=== PATIENT | female | born 1955 | race Caucasian/White ===

== ENCOUNTER 2021-09-30 13:52 | Outpatient (CLI) | payer OTHER, SELFPAY ==
--- NOTE | 2021-09-30 13:59 | MM_ITS ---
WS: [email or web address] BILATERAL SCREENING DIGITAL MAMMOGRAM WITH CAD HISTORY: SCREENING COMPARISON: 09/12/2018 and 08/05/2015 Bilateral CC and MLO views submitted. Computer aided detection analyzed. Breast composition: The breasts are heterogeneously dense, which may obscure small masses. No suspici ous masses, microcalcifications or architectural distortion. Benign scattered calcifications in each breast. MM/[place] [id number] IMPRESSION: BI-RADS: 2-Benign FOLLOW UP: 1 Year Follow-up
== END 2021-09-30 13:53 | disposition home or self-care (01) ==
LOC: RADSHAW 13:58
PROVIDERS: PCP Family Medicine; Visit Provider Family Medicine
DX: Z12.31 Encounter for screening mammogram for malignant neoplasm of breast (principal)
CPT/HCPCS: 77067

== ENCOUNTER 2022-10-03 12:23 | Outpatient (CLI) | payer MEDICARE, OTHER, SELFPAY ==
--- NOTE | 2022-10-03 12:24 | XR_ITS ---
WS: [email or web address] SCREENING DEXA SCAN [facility] CLINICAL INFORMATION: BONE DENSITY COMPARISON: None. FINDINGS: The L1-L4 bone mineral density measures 0.912 g/cm2. This corresponds to a T score score of -2.2 and Z score of -1.6. Left femoral neck bone mineral density measures 1.003 g/cm2. This corresponds to a T score of 0.0 and Z score of 0.5. Right femoral neck bone mineral density measures 0.989 g/cm2. This corresponds to a T score -0.1of an d Z score of 0.4. Mean femoral neck bone mineral density measures 0.996 g/cm2. This corresponds to a T score of -0.1 an d Z score of 0.4. XR/XR DEXA axial skeleton* [id number] IMPRESSION: Osteopenia lumbar spine. Normal bone mineralization femoral necks. Patient's FRAX calculated 10 year probability for major osteoporotic fracture i s 8.0 % and osteoporotic hip fracture is 0.8%.
--- NOTE | 2022-10-03 12:24 | MM_ITS ---
WS: [email or web address] VIEWS: MLO and CC views both breasts. 3D digital tomosynthesis is also included in this exam. Comparison made with prior exam of 04/09/2008, 06/05/2009, 10/25/2010, 08/05/2015, 09/12/2018, 09/30/2021.. Findings: There was no sign of mass, architectural distortion or suspicious calcification in either breast. He terogeneously dense MM/[place] [id number] Impression: BI-RADS: 2-Benign FOLLOW-UP: 1 Year Follow-up This mammogram was also analyzed by the Computer Aided Detection System R2 Imag e [employer].
== END 2022-10-03 12:24 | disposition home or self-care (01) ==
LOC: RAD 12:24
PROVIDERS: PCP Family Medicine; Visit Provider Family Medicine
DX: Z78.0 Asymptomatic menopausal state (principal); Z12.31 Encounter for screening mammogram for malignant neoplasm of breast; M85.88 Other specified disorders of bone density and structure, other site
CPT/HCPCS: 77063; 77067; 77080

== ENCOUNTER 2023-06-02 12:10 | Outpatient (CLI) | payer MEDICARE, OTHER, SELFPAY ==
--- NOTE | 2023-06-02 12:24 | XR_ITS ---
WS: [email or web address] XR knee LT 3V* [id number] REASON FOR EXAM: PAIN IN LEFT KNEE FINDINGS: No fracture or focal bone lesion. Mild narrowing of the medial knee joint space with mild to moderate subchondral sclerosis and osteoph ytosis. Mild narrowing of the lateral knee joint space. Patellofemoral joint space is intact without significant narrowing. Mild to moderate subchondral scle rosis and osteophytosis of the patella. IMPRESSION: Mild/moderate osteoarthritis of the left knee as above.
== END 2023-06-02 12:11 | disposition home or self-care (01) ==
LOC: RAD 12:15
PROVIDERS: PCP Family Medicine; Visit Provider Family Medicine
DX: M17.12 Unilateral primary osteoarthritis, left knee (principal)
CPT/HCPCS: 73562

== ENCOUNTER 2023-06-29 07:00 | Outpatient (CLI) | payer MEDICARE, OTHER, SELFPAY ==
--- NOTE | 2023-06-29 07:18 | MR_ITS ---
WS: [email or web address] MRI LEFT KNEE HISTORY: LEFT KNEE PAIN COMPARISON: Radiograph 06/02/2023 Anterior cruciate ligament: Intact. Posterior cruciate ligament: Intact. Medial collateral ligament: Partial tear of the proximal medial collateral ligament. Small amount of fluid surrounding the MCL. Posterior lateral corner structures: Intact. Medial menisci: Normal anterior horn. Abnormal posterior horn. There is a complex tear involving the posterior horn towards the meniscal root. Fraying and abnormal signal along the superior and inferior surfaces and extending into the meniscal root. Lateral meniscus: Intact. Normal signal, size and shape. Extensor mechanism: Distal quadriceps tendon and patellar tendons are intact. Fluid and soft tissue: Small suprapatellar joint effusion. No Delaney's cyst. Osseous and articular structures: Patellofemoral compartment: Mild narrowing of patellofemoral compartment. Subchondral cystic changes involving the patellar eminence and the lateral patellar facet. Very slight lateral subluxation of th e patella. Medial compartment: Mild narrowing of the medial compartment with small marginal osteophytes. Mild ch ondromalacia involving both the femoral condyle and the tibial plateau. There is a small amount of ed sacha in the medial femoral condyle and to a lesser extent the tibial plateau. Lateral compartment: Mild narrowing of the lateral compartment. Mild chondromalacia. No marrow edema. IMPRESSION: 1. Complex tear posterior horn medial meniscus. Tear involves predominantly the posterior horn toward s the meniscal root. 2. Marrow edema in the medial femoral condyle and the tibial plateau. 3. Partial tear proximal MCL. 4. Small joint effusion. 5. Medial compartment chondromalacia. 6. Mild narrowing patellofemoral compartment with subchondral cystic changes.
== END 2023-06-29 07:01 | disposition home or self-care (01) ==
PROVIDERS: PCP Family Medicine; Visit Provider Family Medicine
DX: S83.232A Complex tear of medial meniscus, current injury, left knee, initial encounter (principal); S83.412A Sprain of medial collateral ligament of left knee, initial encounter; X58.XXXA Exposure to other specified factors, initial encounter; M22.42 Chondromalacia patellae, left knee
CPT/HCPCS: 73721

== ENCOUNTER → 2023-10-09 12:25 | Outpatient (BNVA) | payer MEDICARE, OTHER, SELFPAY | PROVIDERS: PCP Family Medicine; Visit Provider Surgery | DX: Z12.11 Encounter for screening for malignant neoplasm of colon (principal) | CPT/HCPCS: 99024; 99203 ==

== ENCOUNTER 2023-10-23 09:58 | Outpatient (CLI) | payer MEDICARE, OTHER, SELFPAY ==
--- NOTE | 2023-10-23 10:05 | MM_ITS ---
WS: [email or web address] BILATERAL SCREENING DIGITAL TOMOSYNTHESIS MAMMOGRAM WITH CAD HISTORY: SCREENING COMPARISON: 10/03/2022, 09/30/2021 and 09/12/2018 Bilateral CC and MLO views with tomosynthesis and synthetic mammography submitted. Computer aided det ection analyzed. Breast composition: The breasts are heterogeneously dense, which may obscure small masses. No suspici ous masses, microcalcifications or architectural distortion. Long-term stability of calcifications in the anterior central LEFT breast. IMPRESSION: MM/[place] [id number] BI-RADS: 2-Benign FOLLOW UP: 1 Year Follow-up
== END 2023-10-23 09:59 | disposition home or self-care (01) ==
LOC: RAD 09:58
PROVIDERS: PCP Family Medicine; Visit Provider Nurse Practitioner Family
DX: Z12.31 Encounter for screening mammogram for malignant neoplasm of breast (principal)
CPT/HCPCS: 77063; 77067

== ENCOUNTER 2024-02-15 07:05 | Day surgery (SDC) | payer MEDICARE, OTHER, SELFPAY ==
--- NOTE | 2024-02-15 07:25 | W.PM.OPSFHP ---
Same Day Surgery H&P Indication for Procedure/HPI DATE OF PROCEDURE: February 15, 2024 CHIEF COMPLAINT/INDICATIONFOR SURGICAL PROCEDURE: dyspahgia and need for screening colonoscopy PREOP DIAGNOSIS: dysphagia and need for screenign colonoscopy PLANNED PROCEDURE: Operation Date: 02/15/24 08:25 Proposed Procedures p 14124 colon G0105 screen colon H risk Z12.11,49503, R13.10(Not Applicable) - Dayron Donahue MD s EGD Dilation W/ Balloon(Not Applicable) - Dayron Donahue MD Medications/Allergies* Home Medications Medication Instructions Recorded Confirmed Type albuterol sulfate 90 mcg/actuation 2 puff inhalation QID PRN 10/09/23 02/13/24 History aerosol inhaler (ProAir HFA) Shortness Of Breath Or Wheezing amitriptyline 10 mg tablet 10 mg PO DAILY 10/09/23 02/13/24 History cevimeline 30 mg capsule 1 cap PO TID 10/09/23 02/13/24 History hydrocortisone 2.5 % topical cream 1 applic [place] DAILY PRN Hemorrhoids 10/09/23 02/13/24 History with perineal applicator (Anusol-HC) levothyroxine 50 mcg capsule 50 mcg PO DAILY 10/09/23 02/13/24 History multivitamin 1 tab PO DAILY 10/09/23 02/13/24 History vitamins A,C,R-wbms-wpovbk 4,296 1 cap PO ONCE 10/09/23 02/13/24 History mcg-226 mg-90 mg capsule (PreserVision AREDS) calcium carbonate 600 mg-vitamin 1 tab PO DAILY 02/13/24 02/13/24 History D3 5 mcg (200 unit) tablet (Calcium 600 + D(3)) Allergies/Adverse Reactions Allergy/AdvReac Type Severity Reaction Status Date / Time amoxicillin [From Augmentin] Allergy Unknown Verified 10/09/23 13:14 clavulanic acid Allergy Unknown Verified 10/09/23 13:14 [From Augmentin] doxycycline Allergy ALGY-Hives Verified 10/09/23 13:14 levofloxacin [From Levaquin] Allergy ALGY-Hives Verified 10/09/23 13:14 nitroglycerin Allergy ADR/ALGY-Hy Verified 10/09/23 13:14 potension Penicillins Allergy unknown Verified 10/09/23 13:14 Sulfa (Sulfonamide Allergy Unknown Verified 10/09/23 13:14 Antibiotics) Pertinent History/Comorbid Conditions* Family History (Updated 10/09/23 @ 13:03 by HECTOR Maguire) Hypertension Family/Other Social History Smoking and tobacco/nicotine status: never used tobacco/nicotine Alcohol intake: never Substance/Drug Use: never Pertinent Exam Findings alert, oriented x 3, clear to auscultation bilaterally and regular rate & rhythm Recommendations Surgery/Procedure today Other Plans: I discussed with the patient that during EGD with dilation there is an increased risk for perforation due to the dilation of the esophagus, she is agreeable to proceed despite these risks. Coding Level of Care Code Acute Code for Chg Fwd
[2024-02-15 07:29] VITALS: BP 99/69; PULSE 94; RESP 16; TEMP 36.6; O2SAT 97; BMI 33.1
[2024-02-15] MEDS: sodium chloride 0.9% 1,000 ML 30 ML IV (07:40)
--- NOTE | 2024-02-15 07:45 | ANES.PREANE2 ---
Pre-Anesthetic Assessment Height/Weight: Height 1.65 m Weight 90.265 kg Temp Pulse Resp BP Pulse Ox O2 Del Method 97.8 F 94 16 99/69 97 Room Air 02/15/24 07:29 02/15/24 07:29 02/15/24 07:29 02/15/24 07:29 02/15/24 07:29 02/15/24 07:29 Preop Diagnosis: dysphagia and need for screenign colonoscopy Operation Date: 02/15/24 08:25 Proposed Procedures p [id number] colon G0105 screen colon H risk Z12.11,05852, R13.10(Not Applicable) - Dayron Donahue MD s EGD Dilation W/ Balloon(Not Applicable) - Dayron Donahue MD Was Beta Lucy taken within 24 hours: N/A Was Clonidine taken within 24 hours: N/A Last intake: Intake Last Liquid Date 02/14/24 Last Liquid Time 23:00 Last Solid Date 02/13/24 Last Solid Time 17:00 Social No alcohol and No tobacco Exam alert, oriented x 3, clear to auscultation bilaterally and regular rate & rhythm Airway Submandibular: within normal limits Cervical ROM: within normal limits Mallampati: Class II Dentition: full History/ROS No significant history except as noted and No significant complaints Pulmonary None reported CV/HEM None reported Hepatic None reported GI Dysphagia Metabolic Morbid Obesity and Thyroid Disease Neuropsych None reported Anesthetic Plan ASA status: 2 Anesthesia: Anesthesia Evaluation and MAC Risk of > 500 ml blood loss (7ml/kg in children): No Medications/Allergies Home Medications Medication Instructions Recorded Confirmed Last Taken Type albuterol sulfate 90 mcg/actuation 2 puff inhalation QID PRN 10/09/23 02/15/24 Unknown History aerosol inhaler (ProAir HFA) Shortness Of Breath Or Wheezing amitriptyline 10 mg tablet 10 mg PO DAILY 10/09/23 02/15/24 02/14/24 History cevimeline 30 mg capsule 1 cap PO TID 10/09/23 02/15/24 02/14/24 History hydrocortisone 2.5 % topical cream 1 applic [place] DAILY PRN Hemorrhoids 10/09/23 02/13/24 02/12/24 History with perineal applicator (Anusol-HC) levothyroxine 50 mcg capsule 50 mcg PO DAILY 10/09/23 02/15/2402/14/24 History multivitamin 1 tab PO DAILY 10/09/23 02/15/24 02/13/24 History vitamins A,C,D-aedt-vdhhrv 4,296 1 cap PO ONCE 10/09/23 02/13/24 02/13/24 History mcg-226 mg-90 mg capsule (PreserVision AREDS) calcium carbonate 600 mg-vitamin 1 tab PO DAILY 02/13/24 02/15/24 02/14/24 History D3 5 mcg (200 unit) tablet (Calcium 600 + D(3)) Allergies Allergy/AdvReac Type Severity Reaction Status Date / Time amoxicillin [From Augmentin] Allergy Unknown Verified 10/09/23 13:14 clavulanic acid Allergy Unknown Verified 10/09/23 13:14 [From Augmentin] doxycycline Allergy ALGY-Hives Verified 10/09/23 13:14 levofloxacin [From Levaquin] Allergy ALGY-Hives Verified 10/09/23 13:14 nitroglycerin Allergy ADR/ALGY-Hy Verified 10/09/23 13:14 potension Penicillins Allergy unknown Verified 10/09/23 13:14 Sulfa (Sulfonamide Allergy Unknown Verified 10/09/23 13:14 Antibiotics) Current Medications Generic Name Dose Route Start Last Admin Trade Name Freq PRN Reason Stop Dose Admin Sodium Chloride 1,000 mls @ 30 mls/hr 02/15/24 07:15 02/15/24 07:40 Sodium Chloride 0.9% IV 02/16/24 07:14 30 mls/hr .Q24H TAMMY Administration PFSH Anesthesia Family History Family/Other Hypertension Social History Smoking and tobacco/nicotine status: never used tobacco/nicotine Alcohol intake: never Substance/Drug Use: never Data Anesthesia Cardiac Studies: No Data to Display
[2024-02-15 09:22] VITALS: BP 113/72; PULSE 88; RESP 18; TEMP 36.8; O2SAT 93
[2024-02-15 09:33] VITALS: BP 101/65; PULSE 78; RESP 18; O2SAT 94
[2024-02-15 09:45] VITALS: BP 115/74; PULSE 72; RESP 18; O2SAT 99
--- NOTE | 2024-02-15 10:00 | ANE.PACU2 ---
Inpatient post-anesthesia follow up: Airway intact: Yes Vital signs: Temperature 98.2 F Pulse Rate 72 Respiratory Rate 18 Blood Pressure 115/74 Pulse Oximetry 99 Oxygen Delivery Me thod Room Air Oxygen Flow Rate Fraction of Inspir ed Oxygen Hydration adequate: Yes Nausea and vomiting: No Pain level: 1 Mental status: Baseline
== END 2024-02-15 10:00 | disposition home or self-care (01) ==
PROVIDERS: PCP Family Medicine; Visit Provider Surgery
PROC: 0DJD8ZZ Inspection of Lower Intestinal Tract, Via Natural or Artificial Opening Endoscopic (ICD-10-PCS; CPT 45378; principal; 2024-02-15 08:25)
DX: Z12.11 Encounter for screening for malignant neoplasm of colon (principal); D12.8 Benign neoplasm of rectum; K57.30 Diverticulosis of large intestine without perforation or abscess without bleeding; K29.50 Unspecified chronic gastritis without bleeding; K44.9 Diaphragmatic hernia without obstruction or gangrene; K29.80 Duodenitis without bleeding; E66.01 Morbid (severe) obesity due to excess calories; Z68.33 Body mass index [BMI] 33.0-33.9, adult
CPT/HCPCS: 43239; 45380; 88305; J2704; J7030

== ENCOUNTER → 2024-03-06 08:51 | Outpatient (BNVA) | payer MEDICARE, OTHER, SELFPAY | PROVIDERS: PCP Family Medicine; Visit Provider Surgery | DX: Z09 Encounter for follow-up examination after completed treatment for conditions other than malignant neoplasm (principal) | CPT/HCPCS: 99213 ==

== ENCOUNTER 2024-10-11 13:18 | Outpatient (CLI) | payer MEDICARE, OTHER, SELFPAY ==
--- NOTE | 2024-10-11 13:22 | XR_ITS ---
WS: [email or web address] SCREENING DEXA SCAN [facility] CLINICAL INFORMATION: SCREENING FOR OSTEOPOROSIS COMPARISON: 2022 FINDINGS: The L1-L4 bone mineral density measures 0.912 g/cm2. This corresponds to a T score score of -2.2 and Z score of -1.5. Left femoral neck bone mineral density measures 0.980 g/cm2. This corresponds to a T score of -0.2 an d Z score of 0.4. Right femoral neck bone mineral density measures 0.972 g/cm2. This corresponds to a T score -0.3of an d Z score of 0.4. Mean femoral neck bone mineral density measures 0.976 g/cm2. This corresponds to a T score of -0.3 an d Z score of 0.4. XR/XR DEXA axial skeleton* [id number] IMPRESSION: Osteopenia lumbar spine. Normal bone mineralization femoral necks. Patient's FRAX calculated 10 year probability for major osteoporotic fracture i s 8.5% and osteoporotic hip fracture is 0.9%. Bone mineral density lumbar spine is unchanged. Bone mineral density femoral necks decreased -2.0%
== END 2024-10-11 13:19 | disposition home or self-care (01) ==
LOC: RAD 13:19
PROVIDERS: PCP Family Medicine; Visit Provider Nurse Practitioner Family
DX: Z78.0 Asymptomatic menopausal state (principal); M85.88 Other specified disorders of bone density and structure, other site
CPT/HCPCS: 77080

== ENCOUNTER 2024-11-25 11:00 | Outpatient (CLI) | payer MEDICARE, OTHER, SELFPAY ==
--- NOTE | 2024-11-25 11:07 | MM_ITS ---
WS: [email or web address] BILATERAL 3D TOMOSYNTHESIS DIGITAL SCREENING MAMMOGRAPHY WITH CAD CLINICAL INFORMATION: SCREENING HISTORY: Screening mammogram. No current complaints. COMPARISON: 10/23/2023 TECHNIQUE: Bilateral CC and MLO views. FINDINGS: The breasts are composed of heterogeneous fibroglandular density tissue, which can limit the detection of small underlying mass lesions. No suspicious mass, asymmetry, calcifications, or architectural distortion. No evidence of malignancy. Incidental bilateral punctate calcifications. MM/MM [facility] tomosynthesis [id number] IMPRESSION: DENSITY: The breasts are heterogeneously dense, which may obscure small masses. BI-RADS: 2 - Benign FOLLOW UP: 1 Year Follow-up Recommend return to annual screening mammography.
== END 2024-11-25 11:01 | disposition home or self-care (01) ==
PROVIDERS: PCP Family Medicine; Visit Provider Family Medicine
DX: Z12.31 Encounter for screening mammogram for malignant neoplasm of breast (principal); R92.333 Mammographic heterogeneous density, bilateral breasts; R92.1 Mammographic calcification found on diagnostic imaging of breast
CPT/HCPCS: 77063; 77067